=== PATIENT | male | born 1945 | race Caucasian/White ===

== ENCOUNTER 2019-02-28 05:22 | Emergency (ER) | payer BC, MEDICARE ==
[~2019-02-28] VITALS: Ht 182.9 cm; Wt 90.7 kg
[2019-02-28] MEDS ORDERED: LIDOCAINE 2% JEL UROJET 10 ML MM ONE (05:36)
[2019-02-28 05:58] LABS: APPEARANCE,URINE Cloudy (CLEAR); BILIRUBIN,URINE SMALL (NEGATIVE); BLOOD, URINE Large Ery/uL (NEGATIVE); COLOR,URINE Amber (YELLOW); KETONES,URINE Trace (NEGATIVE); LEUKOCYTE ESTERASE ,URINE Trace (NEGATIVE); NITRITE, URINE Positive (NEGATIVE); PROTEIN,URINE >=300 mg/dl (NEGATIVE); UGLUCOSE 100 MG/DL mg/dL (NEGATIVE)
[2019-02-28] MEDS: LIDOCAINE 2% JEL UROJET 10 ML MM ONE (06:10)
--- NOTE | 2019-02-28 06:10 | NUR ---
FLUSHED PT STATON PER MD ORDERED. FLOW IS BETTER.
[2019-02-28 07:09] LABS: RBC,URINE TOO NUMEROUS TO COUN /HPF (0-2)
[2019-02-28 07:10] LABS: BACTERIA,URINE Rare /HPF (None Seen); SQUAMOUS EPITHELIAL CELL,UR Few /HPF (None Seen)
--- NOTE | 2019-02-28 09:22 | NUR ---
Patient discharged to home in stable condition. Written and verbal after care instructions given. Patient verbalizes understanding of instruction.
--- NOTE | 2019-02-28 09:22 | NUR ---
hodge catheter connected to leg bag, provided patient teaching. patient verbalized understanding.
[2019-02-28 09:23] VITALS: BP 126/74
== END 2019-02-28 09:23 | disposition home or self-care (01) ==
LOC: ER 05:24
DX: R33.9 Retention of urine, unspecified (principal); R31.9 Hematuria, unspecified; N40.0 Benign prostatic hyperplasia without lower urinary tract symptoms
CPT/HCPCS: 51702; 76857; 81001; 99284; J3490; 81000-TC